=== PATIENT | male | born 1985 | race Caucasian/White ===

== ENCOUNTER 2016-09-03 15:22 | Emergency (ER) | payer OTHER ==
--- NOTE | 2016-09-03 16:04 | EDDOCDS ---
Physician Documentation [facility] Name: Haroon Wharton Age: 31 yrs Sex: Male : 1985 Arrival Date: 09/03/2016 Time: 15:22 Bed TR7 Private MD: Other - Complete Info On Cds Disposition: 09/03/16 15:53 Discharged to Home/Self Care. Impression: Impetigo - MULTIPLE AREAS ON TORSO. - Condition is Stable. - Discharge Instructions: Impetigo, Pediatric. - Prescriptions for Bactroban 2 % Topical Ointment - apply to affected area 1 application by TOPICAL route every 12 hours for 14 days; 30 gram. Clindamycin HCl 300 mg Oral Capsule - take 1 capsule by ORAL route every 6 hours; 40 capsule. - Medication Reconciliation, Local Pharmacy Hours form. - Follow up: Emergency Department; When: As needed; Reason: Worsening of conditions. Follow up: [facility]; When: Call to arrange an appointment; Reason: Wound/Symptom Recheck, Recheck today's complaints, Continuance of care, To establish care. - Problem is an acute exacerbation. - Symptoms are unchanged. Historical: - Allergies: no known allergies; - Home Meds: 1. sulfamethoxazole-trimethoprim 800-160 mg Oral tab 1 tab 2 times per day - PMHx: none; - PSHx: none; - Social history: Smoking status: Patient uses tobacco products, current every day smoker. No barriers to communication noted, The patient speaks fluent Andorran, Speaks appropriately for age. - Family history: Not pertinent. - : The pt / caregiver states he / she is not on anticoagulants. Home medication list is obtained from the patient. - Exposure Risk Screening:: None identified. Vital Signs: 09/03 15:25 BP 142 / 84; Pulse 88; Resp 18 S; Temp 97.3(O); Pulse Ox 100% on R/A; Weight 72.12 kg / gr2 159 lbs (R); Height 5 ft. 6 in. (167.64 cm) (R); Pain 2/10; 15:25 Body Mass Index 25.66 (72.12 kg, 167.64 cm) gr2 MDM: 15:30 Undress patient appropriately for examination ordered. dt4 Signatures: Fariba Lenz RN RN ld5 Rufina Moseley RN RN ttb Sindi Garcia, PA-C PA-C dt4 MTDD
--- NOTE | 2016-09-03 16:04 | EDDOCDS ---
Nurse's Notes [facility] Name: Haroon Wharton Age: 31 yrs Sex: Male : 1985 Arrival Date: 09/03/2016 Time: 15:22 Bed TR7 Private MD: Other - Complete Info On Cds Diagnosis: Impetigo-MULTIPLE AREAS ON TORSO Presentation: 09/03 15:27 Presenting complaint: Patient states: Rash to back, buttocks and arms. Pt reports rash ld5 comes and goes. Has seen specialists for this with no relief. Finished prednisone a week ago. Adult Sepsis Screening: The patient does not have new or worsening altered mentation. Patient's respiratory rate is less than 22. Systolic blood pressure is greater than 100. Patient has a qSOFA score of 0- Negative Sepsis Screen. Suicide/Homicide risk assessment- the patient denies having any suicidal and/or homicidal ideations and does not present with any other emotional, behavioral or mental health complaints. 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 Transition of care: patient was not received from another setting of care. 15:27 Acuity: MER Level 4 ld5 15:27 Method Of Arrival: Walkin/Carried/Asstd ld5 Triage Assessment: 15:30 General: Appears in no apparent distress. Pain: Location: back, buttocks, right arm and ld5 left arm Pain currently is 7 out of 10 on a pain scale. HIV screening NA for this visit Offered previously. Neurological: Level of Consciousness is awake, alert. Respiratory: Airway is patent Respiratory effort is even, unlabored. Derm: Reports weeping to rash. Historical: - Allergies: no known allergies; - Home Meds: 1. sulfamethoxazole-trimethoprim 800-160 mg Oral tab 1 tab 2 times per day - PMHx: none; - PSHx: none; - Social history: Smoking status: Patient uses tobacco products, current every day smoker. No barriers to communication noted, The patient speaks fluent [place] Islander, Speaks appropriately for age. - Family history: Not pertinent. - : The pt / caregiver states he / she is not on anticoagulants. Home medication list is obtained from the patient. - Exposure Risk Screening:: None identified. Screenin:02 Screening information is obtained from the patient. Fall risk: No risks identified. ttb Assistance ADL's: requires no assistance with activities of daily living. Abuse/DV Screen: The patient / caregiver reports he/she is: not in a situation that causes fear, pain or injury. Nutritional screening: No deficits noted. Advance Directives: Currently, there is no health care proxy. home support is adequate. Assessment: 16:02 General: Appears in no apparent distress, well nourished, well groomed, Behavior is ttb appropriate for age, cooperative, pleasant. Neurological: Level of Consciousness is awake, alert. Respiratory: Airway is patent Respiratory effort is even, unlabored. Derm: Skin is normal, Rash noted that is states rash on torso. Vital Signs: 15:25 BP 142 / 84; Pulse 88; Resp 18 S; Temp 97.3(O); Pulse Ox 100% on R/A; Weight 72.12 kg gr2 (R); Height 5 ft. 6 in. (167.64 cm) (R); Pain 2/10; 15:25 Body Mass Index 25.66 (72.12 kg, 167.64 cm) gr2 Vitals: 15:25 Log In Time: September 03, 2016 at 15:25. gr2 ED Course: 15:24 Patient visited by Carito Salter. gr2 15:24 Other - Complete Info On Cds is Private Physician. gr2 15:24 Patient moved to Waiting gr2 15:26 Patient visited by Carito Salter. gr2 15:26 Patient moved to Pre RCE gr2 15:28 Triage Initiated ld5 15:29 Sindi Garcia PA-C is PHCP. dt4 15:29 Mary Ann Shafer MD is Attending Physician. dt4 15:32 Patient visited by Fariba Lenz RN. ld5 15:32 Patient moved to Triage 2 ld5 15:33 Patient visited by Sindi Garcia PA-C. dt4 15:52 [facility] is Referral Physician. dt4 15:57 Patient moved to TR7 ttb 16:02 The patient / caregiver is instructed regarding the plan of care and ED course. Patient ttb has correct armband on for positive identification. 16:02 No IV's were initiated during this patient's visit. No procedures done that require ttb assistance. Order Results: There are currently no results for this order. Outcome: 15:53 Discharge ordered by Provider. dt4 16:02 Discharge Assessment: Patient awake, alert and oriented x 3. No cognitive and/or ttb functional deficits noted. Patient verbalized understanding of disposition instructions. Patient awake and alert. patient administered narcotics - no. The following High Risk Discharge criteria are identified: None. Discharged to home ambulatory. Condition: good Condition: stable Condition: improved. Discharge instructions given to patient, Instructed on discharge instructions, follow up and referral plans. medication usage, Demonstrated understanding of instructions, medications, Pt was receptive of discharge instructions/ teaching. Prescriptions given X 2. No special radiology studies were completed. Property :Personal belongings accompany Pt. 16:03 Patient left the ED. ttb Signatures: Fariba LenzRN RN ld5 Rufina Moseley RN RN ttb Carito Salter gr2 Sindi Garcia PA-C PA-C dt4 Corrections: (The following items were deleted from the chart) 15:32 15:27 Presenting complaint: Patient states: Rash to back, buttocks and arms. Pt reports ld5 rash comes and goes. Has seen specialists for this with no relief ld5 MTDD
--- NOTE | 2016-09-05 17:04 | EDDOCDS ---
Physician Documentation [facility] Name: Haroon Wharton Age: 31 yrs Sex: Male : 1985 Arrival Date: 09/03/2016 Time: 15:22 Bed TR7 Private MD: Other - Complete Info On Cds Disposition: 09/03/16 15:53 Discharged to Home/Self Care. Impression: Impetigo - MULTIPLE AREAS ON TORSO. - Condition is Stable. - Discharge Instructions: Impetigo, Pediatric. - Prescriptions for Bactroban 2 % Topical Ointment - apply to affected area 1 application by TOPICAL route every 12 hours for 14 days; 30 gram. Clindamycin HCl 300 mg Oral Capsule - take 1 capsule by ORAL route every 6 hours; 40 capsule. - Medication Reconciliation, Local Pharmacy Hours form. - Follow up: Emergency Department; When: As needed; Reason: Worsening of conditions. Follow up: [facility]; When: Call to arrange an appointment; Reason: Wound/Symptom Recheck, Recheck today's complaints, Continuance of care, To establish care. - Problem is an acute exacerbation. - Symptoms are unchanged. Historical: - Allergies: no known allergies; - Home Meds: 1. sulfamethoxazole-trimethoprim 800-160 mg Oral tab 1 tab 2 times per day - PMHx: none; - PSHx: none; - Social history: Smoking status: Patient uses tobacco products, current every day smoker. No barriers to communication noted, The patient speaks fluent Gambian, Speaks appropriately for age. - Family history: Not pertinent. - : The pt / caregiver states he / she is not on anticoagulants. Home medication list is obtained from the patient. - Exposure Risk Screening:: None identified. Vital Signs: 09/03 15:25 BP 142 / 84; Pulse 88; Resp 18 S; Temp 97.3(O); Pulse Ox 100% on R/A; Weight 72.12 kg / gr2 159 lbs (R); Height 5 ft. 6 in. (167.64 cm) (R); Pain 2/10; 15:25 Body Mass Index 25.66 (72.12 kg, 167.64 cm) gr2 MDM: 15:30 Undress patient appropriately for examination ordered. dt4 16:10 [facility] Payment Agreement was scanned into [employer] and attached to record. gjb 16:10 Financial registration complete. b 09/04 11:24 T-Sheet-- Draft Copy was scanned into [employer] and attached to record. gb Signatures: Gwendolyn Navarrete, Reg Reg Fariba Mathews,RN RN ld5 Rufina Moseley RN RN ttb Sindi Garcia PA-C PA-C dt4 Nida Madsen The chart was reviewed and I authenticate all verbal orders and agree with the evaluation and treatment provided.Attachments: 09/03 16:10 [facility] [place] [facility] 09/04 11:24 T-Sheet-- Draft Copy gb Chart Complete MTDD
--- NOTE | 2016-09-05 17:04 | EDDOCDS ---
Nurse's Notes [facility] Name: Haroon Wharton Age: 31 yrs Sex: Male : 1985 Arrival Date: 09/03/2016 Time: 15:22 Bed TR7 Private MD: Other - Complete Info On Cds Diagnosis: Impetigo-MULTIPLE AREAS ON TORSO Presentation: 09/03 15:27 Presenting complaint: Patient states: Rash to back, buttocks and arms. Pt reports rash ld5 comes and goes. Has seen specialists for this with no relief. Finished prednisone a week ago. Adult Sepsis Screening: The patient does not have new or worsening altered mentation. Patient's respiratory rate is less than 22. Systolic blood pressure is greater than 100. Patient has a qSOFA score of 0- Negative Sepsis Screen. Suicide/Homicide risk assessment- the patient denies having any suicidal and/or homicidal ideations and does not present with any other emotional, behavioral or mental health complaints. 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 Transition of care: patient was not received from another setting of care. 15:27 Acuity: MER Level 4 ld5 15:27 Method Of Arrival: Walkin/Carried/Asstd ld5 Triage Assessment: 15:30 General: Appears in no apparent distress. Pain: Location: back, buttocks, right arm and ld5 left arm Pain currently is 7 out of 10 on a pain scale. HIV screening NA for this visit Offered previously. Neurological: Level of Consciousness is awake, alert. Respiratory: Airway is patent Respiratory effort is even, unlabored. Derm: Reports weeping to rash. Historical: - Allergies: no known allergies; - Home Meds: 1. sulfamethoxazole-trimethoprim 800-160 mg Oral tab 1 tab 2 times per day - PMHx: none; - PSHx: none; - Social history: Smoking status: Patient uses tobacco products, current every day smoker. No barriers to communication noted, The patient speaks fluent Wolof, Speaks appropriately for age. - Family history: Not pertinent. - : The pt / caregiver states he / she is not on anticoagulants. Home medication list is obtained from the patient. - Exposure Risk Screening:: None identified. Screenin:02 Screening information is obtained from the patient. Fall risk: No risks identified. ttb Assistance ADL's: requires no assistance with activities of daily living. Abuse/DV Screen: The patient / caregiver reports he/she is: not in a situation that causes fear, pain or injury. Nutritional screening: No deficits noted. Advance Directives: Currently, there is no health care proxy. home support is adequate. Assessment: 16:02 General: Appears in no apparent distress, well nourished, well groomed, Behavior is ttb appropriate for age, cooperative, pleasant. Neurological: Level of Consciousness is awake, alert. Respiratory: Airway is patent Respiratory effort is even, unlabored. Derm: Skin is normal, Rash noted that is states rash on torso. Vital Signs: 15:25 BP 142 / 84; Pulse 88; Resp 18 S; Temp 97.3(O); Pulse Ox 100% on R/A; Weight 72.12 kg gr2 (R); Height 5 ft. 6 in. (167.64 cm) (R); Pain 2/10; 15:25 Body Mass Index 25.66 (72.12 kg, 167.64 cm) gr2 Vitals: 15:25 Log In Time: September 03, 2016 at 15:25. gr2 ED Course: 15:24 Patient visited by Carito Salter. gr2 15:24 Other - Complete Info On Cds is Private Physician. gr2 15:24 Patient moved to Waiting gr2 15:26 Patient visited by Carito Salter. gr2 15:26 Patient moved to Pre RCE gr2 15:28 Triage Initiated ld5 15:29 Sindi Garcia PA-C is PHCP. dt4 15:29 Mary Ann Shafer MD is Attending Physician. dt4 15:32 Patient visited by Fariba Lenz RN. ld5 15:32 Patient moved to Triage 2 ld5 15:33 Patient visited by Sindi Garcia PA-C. dt4 15:52 [facility] is Referral Physician. dt4 15:57 Patient moved to TR7 ttb 16:02 The patient / caregiver is instructed regarding the plan of care and ED course. Patient ttb has correct armband on for positive identification. 16:02 No IV's were initiated during this patient's visit. No procedures done that require ttb assistance. 16:10 [facility] [place] Agreement was scanned into [employer] and attached to record. gjb 09/04 11:24 T-Sheet-- Draft Copy was scanned into [employer] and attached to record. gb Order Results: There are currently no results for this order. Outcome: 09/03 15:53 Discharge ordered by Provider. dt4 16:02 Discharge Assessment: Patient awake, alert and oriented x 3. No cognitive and/or ttb functional deficits noted. Patient verbalized understanding of disposition instructions. Patient awake and alert. patient administered narcotics - no. The following High Risk Discharge criteria are identified: None. Discharged to home ambulatory. Condition: good Condition: stable Condition: improved. Discharge instructions given to patient, Instructed on discharge instructions, follow up and referral plans. medication usage, Demonstrated understanding of instructions, medications, Pt was receptive of discharge instructions/ teaching. Prescriptions given X 2. No special radiology studies were completed. Property :Personal belongings accompany Pt. 16:03 Patient left the ED. ttb Signatures: Gwendolyn Navarrete, Reg Reg gb Fariba Lenz RN RN ld5 Rufina Moseley RN RN ttb Carito Salter gr2 Sindi Garcia PA-C PA-C dt4 Nida Madsen Corrections: (The following items were deleted from the chart) 15:32 15:27 Presenting complaint: Patient states: Rash to back, buttocks and arms. Pt reports ld5 rash comes and goes. Has seen specialists for this with no relief ld5 Chart Complete MTDD
--- NOTE | 2016-09-05 17:04 | EDDOCDS ---
Physician Documentation [facility] Name: Haroon Wharton Age: 31 yrs Sex: Male : 1985 Arrival Date: 09/03/2016 Time: 15:22 Bed TR7 Private MD: Other - Complete Info On Cds Disposition: 09/03/16 15:53 Discharged to Home/Self Care. Impression: Impetigo - MULTIPLE AREAS ON TORSO. - Condition is Stable. - Discharge Instructions: Impetigo, Pediatric. - Prescriptions for Bactroban 2 % Topical Ointment - apply to affected area 1 application by TOPICAL route every 12 hours for 14 days; 30 gram. Clindamycin HCl 300 mg Oral Capsule - take 1 capsule by ORAL route every 6 hours; 40 capsule. - Medication Reconciliation, Local Pharmacy Hours form. - Follow up: Emergency Department; When: As needed; Reason: Worsening of conditions. Follow up: [facility]; When: Call to arrange an appointment; Reason: Wound/Symptom Recheck, Recheck today's complaints, Continuance of care, To establish care. - Problem is an acute exacerbation. - Symptoms are unchanged. Historical: - Allergies: no known allergies; - Home Meds: 1. sulfamethoxazole-trimethoprim 800-160 mg Oral tab 1 tab 2 times per day - PMHx: none; - PSHx: none; - Social history: Smoking status: Patient uses tobacco products, current every day smoker. No barriers to communication noted, The patient speaks fluent Moldovan, Speaks appropriately for age. - Family history: Not pertinent. - : The pt / caregiver states he / she is not on anticoagulants. Home medication list is obtained from the patient. - Exposure Risk Screening:: None identified. Vital Signs: 09/03 15:25 BP 142 / 84; Pulse 88; Resp 18 S; Temp 97.3(O); Pulse Ox 100% on R/A; Weight 72.12 kg / gr2 159 lbs (R); Height 5 ft. 6 in. (167.64 cm) (R); Pain 2/10; 15:25 Body Mass Index 25.66 (72.12 kg, 167.64 cm) gr2 MDM: 15:30 Undress patient appropriately for examination ordered. dt4 16:10 [facility] Payment Agreement was scanned into [employer] and attached to record. gjb 16:10 Financial registration complete. b 09/04 11:24 T-Sheet-- Draft Copy was scanned into [employer] and attached to record. gb Signatures: Gwendolyn Navarrete, Reg Reg Fariba Mathews,RN RN ld5 Rufina Moseley RN RN ttb Sindi Garcia PA-C PA-C dt4 Nida Madsen The chart was reviewed and I authenticate all verbal orders and agree with the evaluation and treatment provided.Attachments: 09/03 16:10 [facility] Payment Agreement [facility] 09/04 11:24 T-Sheet-- Draft Copy gb Chart Complete MTDD
== END 2016-09-03 16:03 | disposition home or self-care (01) ==
LOC: M ED 15:22
DX: L01.01 Non-bullous impetigo (principal); Z72.0 Tobacco use

== ENCOUNTER 2016-09-09 14:57 | Emergency (ER) | payer OTHER ==
[2016-09-09] MEDS ORDERED: methylPREDNISolone INJ 125 MG/2 ML VIAL (J2930) As Ordered ONE (15:39)
--- NOTE | 2016-09-09 16:08 | EDDOCDS ---
Nurse's Notes [facility] Name: Haroon Wharton Age: 31 yrs Sex: Male : 1985 Arrival Date: 09/09/2016 Time: 14:57 Bed TR2 Private MD: Other - Complete Info On Cds Diagnosis: Dermatitis, unspecified Presentation: 09/09 15:11 Presenting complaint: Patient states: has a skin rash that he has had for the past 6 [facility] years, weeping sores on back arms and legs. Adult Sepsis Screening: The patient does not have new or worsening altered mentation. Patient's respiratory rate is less than 22. Systolic blood pressure is greater than 100. Patient has a qSOFA score of 0- Negative Sepsis Screen. Suicide/Homicide risk assessment- the patient denies having any suicidal and/or homicidal ideations and does not present with any other emotional, behavioral or mental health complaints. 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 Transition of care: Patient was received from [facility]. 15:11 Acuity: MER Level 3 [facility] 15:11 Method Of Arrival: Walkin/Carried/Asstd [facility] Triage Assessment: 15:18 General: Appears well nourished, well groomed, Behavior is appropriate for age, kpj pleasant. Pain: Location: back arms and legs Pain currently is 9 out of 10 on a pain scale. Pt Declines HIV testing. Neurological: Level of Consciousness is awake, alert, Oriented to person, place, time. Respiratory: Airway is patent Respiratory effort is even, unlabored, Respiratory pattern is regular, symmetrical. Derm: Skin is pink, warm & dry. Reports weeping sores on back arms and legs. Historical: - Allergies: No known drug Allergies; - Home Meds: 1. clindamycin HCl 300 mg Oral cap 1 cap every 6 hours (Last dose: 09/09/2016 11:30) 2. mupirocin 2 % topical oint 3 times per day ran out - PMHx: chronic skin rash; - PSHx: Lasik Surgery; - Social history: Smoking status: Patient uses tobacco products, heavy tobacco smoker. No barriers to communication noted, The patient speaks fluent Bruneian. - Family history: Not pertinent. - : The pt / caregiver states he / she is not on anticoagulants. Home medication list is obtained from the patient. - Exposure Risk Screening:: None identified. Screenin:46 Screening information is obtained from the patient. Fall risk: No risks identified. kpj Assistance ADL's: requires no assistance with activities of daily living. Abuse/DV Screen: The patient / caregiver reports he/she is: not in a situation that causes fear, pain or injury. Nutritional screening: No deficits noted. Advance Directives: Currently, there is no health care proxy. There is no active DNR order. There is no living will. There is no Power of [place]. Advance directive information has not previously been placed in an [facility] medical record. Further advance directive information is declined. home support is adequate. Assessment: 15:46 General: Appears uncomfortable, well nourished, well groomed, Behavior is appropriate [facility] for age, pleasant. Pain: Location: back ,arms and legs Pain currently is 7 out of 10 on a pain scale. Neurological: Level of Consciousness is awake, alert. Respiratory: Airway is patent Respiratory effort is even, unlabored, Respiratory pattern is regular, symmetrical. Derm: Skin is pink, warm & dry. circular weeping lesions noted on back arms legs and buttocks. 16:05 Reassessment: Patient appears in no apparent distress at this time. no reaction from j solumedrol imjection. Vital Signs: 14:59 BP 162 / 92; Pulse 115; Resp 18 S; Temp 98.2(O); Pulse Ox 97% on R/A; Weight 68.04 kg gr2 (R); Height 5 ft. 6 in. (167.64 cm) (R); Pain 4/10; 16:01 BP 130 / 87 RA Standing (auto/lg); Pulse 123; Resp 16; Temp 99.1(O); Pulse Ox 96% on rs6 R/A; Pain 8/10; 14:59 Body Mass Index 24.21 (68.04 kg, 167.64 cm) gr2 Vitals: 14:59 Log In Time: September 09, 2016 at 14:59. gr2 ED Course: 14:59 Patient visited by Carito Salter. gr2 14:59 Other - Complete Info On Cds is Private Physician. gr2 14:59 Patient moved to Waiting gr2 15:00 Patient visited by Carito Salter. gr2 15:00 Patient moved to Pre RCE gr2 15:13 Triage Initiated kpj 15:18 Patient moved to I4 / M4 srm 15:21 Patient moved to Triage 1 jjr 15:22 [facility] ar2 15:22 Noel Mares MD is Attending Physician. ar2 15:23 Patient visited by Don Chopra PA-C. ar2 15:36 [facility] ar2 15:46 Resting quietly. Awaiting 20 minute post injection period.. kpj 15:46 Patient moved to TR2 kp 15:46 The patient / caregiver is instructed regarding the plan of care and ED course. Patient [facility] has correct armband on for positive identification. 15:46 No IV's were initiated during this patient's visit. No procedures done that require kpj assistance. 16:02 Patient visited by Cony Kulkarni PCA. rs6 Administered Medications: 15:45 Drug: methylPREDNISolone Sodium Succinate 125 mg [methylprednisolone sodium succ 125 mg kpj solution for injection (125 mg)] Route: IM; Site: right gluteus; Order Results: There are currently no results for this order. Outcome: 15:37 Discharge ordered by Provider. ar2 16:06 Discharge Assessment: Patient awake, alert and oriented x 3. No cognitive and/or kpj functional deficits noted. Patient verbalized understanding of disposition instructions. patient administered narcotics - no. The following High Risk Discharge criteria are identified: None. Discharged to home ambulatory. Condition: stable. Discharge instructions given to patient, Instructed on discharge instructions, follow up and referral plans. medication usage, no driving heavy equipment, wound care, no drinking with medication, Demonstrated understanding of instructions, medications, Pt was receptive of discharge instructions/ teaching. Prescriptions given X 2. No special radiology studies were completed. Property sent home with patient. 16:07 Patient left the ED. [facility] Signatures: Jyoti Wright RN RN kpj Michelson, Staci, RN RN srm Raymond, Jessica, RN RN jjr Robertshaw, Aaron, PA-C PA-C ar Carito Salter [facility] Cony Kulkarni PCA [employer] rs6 MTDD
--- NOTE | 2016-09-09 16:08 | EDDOCDS ---
Physician Documentation [facility] Name: Haroon Wharton Age: 31 yrs Sex: Male : 1985 Arrival Date: 09/09/2016 Time: 14:57 Bed TR2 Private MD: Other - Complete Info On Cds Disposition: 09/09/16 15:37 Discharged to Home/Self Care. Impression: Dermatitis, unspecified. - Condition is Stable. - Prescriptions for Hydroxyzine HCl 50 mg Oral Tablet - take 1 tablet by ORAL route every 8 hours As needed; 20 tablet. Prednisone 20 mg Oral Tablet - take 1 tablet by ORAL route as directed Day 1-3: 3 po, day 4-7: 2 po, day 8-10: 1 po; 20 tablet. - Medication Reconciliation, Local Pharmacy Hours form. - Follow up: Kisha Zamarripa [facility]; When: Call to arrange an appointment; Reason: Recheck today's complaints, obtain dermatology referral. Follow up: Emergency Department; When: As needed; Reason: fevers, signs of infection, trouble breathing. - Problem is an acute exacerbation. - Symptoms are unchanged. - Notes: your rash is consistent with some type of dermatitis. take medications as directed. no alcohol use, driving, or use of heavy machinery or weaponry while taking hydroxyzine Historical: - Allergies: No known drug Allergies; - Home Meds: 1. clindamycin HCl 300 mg Oral cap 1 cap every 6 hours (Last dose: 09/09/2016 11:30) 2. mupirocin 2 % topical oint 3 times per day ran out - PMHx: chronic skin rash; - PSHx: Lasik Surgery; - Social history: Smoking status: Patient uses tobacco products, heavy tobacco smoker. No barriers to communication noted, The patient speaks fluent Divehi. - Family history: Not pertinent. - : The pt / caregiver states he / she is not on anticoagulants. Home medication list is obtained from the patient. - Exposure Risk Screening:: None identified. Vital Signs: 09/09 14:59 BP 162 / 92; Pulse 115; Resp 18 S; Temp 98.2(O); Pulse Ox 97% on R/A; Weight 68.04 kg / gr2 150 lbs (R); Height 5 ft. 6 in. (167.64 cm) (R); Pain 4/10; 16:01 BP 130 / 87 RA Standing (auto/lg); Pulse 123; Resp 16; Temp 99.1(O); Pulse Ox 96% on rs6 R/A; Pain 810; 14:59 Body Mass Index 24.21 (68.04 kg, 167.64 cm) gr2 MDM: 15:36 methylPREDNISolone Sodium Succinate 125 mg IM once ordered. ar2 15:41 Financial registration complete. [email or web address] Administered Medications: 15:45 Drug: methylPREDNISolone Sodium Succinate 125 mg [methylprednisolone sodium succ 125 mg [facility] solution for injection (125 mg)] Route: IM; Site: right gluteus; Signatures: Jyoti Wright, RN RN kpj Don Chopra PA-C PA-C ar2 Eliaan Frederick, Reg Reg ks16 MTDD
--- NOTE | 2016-09-11 17:08 | EDDOCDS ---
Nurse's Notes [facility] Name: Haroon Wharton Age: 31 yrs Sex: Male : 1985 Arrival Date: 09/09/2016 Time: 14:57 Bed TR2 Private MD: Other - Complete Info On Cds Diagnosis: Dermatitis, unspecified Presentation: 09/09 15:11 Presenting complaint: Patient states: has a skin rash that he has had for the past 6 [facility] years, weeping sores on back arms and legs. Adult Sepsis Screening: The patient does not have new or worsening altered mentation. Patient's respiratory rate is less than 22. Systolic blood pressure is greater than 100. Patient has a qSOFA score of 0- Negative Sepsis Screen. Suicide/Homicide risk assessment- the patient denies having any suicidal and/or homicidal ideations and does not present with any other emotional, behavioral or mental health complaints. 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 Transition of care: Patient was received from [facility]. 15:11 Acuity: MER Level 3 [facility] 15:11 Method Of Arrival: Walkin/Carried/Asstd [facility] Triage Assessment: 15:18 General: Appears well nourished, well groomed, Behavior is appropriate for age, kpj pleasant. Pain: Location: back arms and legs Pain currently is 9 out of 10 on a pain scale. Pt Declines HIV testing. Neurological: Level of Consciousness is awake, alert, Oriented to person, place, time. Respiratory: Airway is patent Respiratory effort is even, unlabored, Respiratory pattern is regular, symmetrical. Derm: Skin is pink, warm & dry. Reports weeping sores on back arms and legs. Historical: - Allergies: No known drug Allergies; - Home Meds: 1. clindamycin HCl 300 mg Oral cap 1 cap every 6 hours (Last dose: 09/09/2016 11:30) 2. mupirocin 2 % topical oint 3 times per day ran out - PMHx: chronic skin rash; - PSHx: Lasik Surgery; - Social history: Smoking status: Patient uses tobacco products, heavy tobacco smoker. No barriers to communication noted, The patient speaks fluent Nigerian. - Family history: Not pertinent. - : The pt / caregiver states he / she is not on anticoagulants. Home medication list is obtained from the patient. - Exposure Risk Screening:: None identified. Screenin:46 Screening information is obtained from the patient. Fall risk: No risks identified. kpj Assistance ADL's: requires no assistance with activities of daily living. Abuse/DV Screen: The patient / caregiver reports he/she is: not in a situation that causes fear, pain or injury. Nutritional screening: No deficits noted. Advance Directives: Currently, there is no health care proxy. There is no active DNR order. There is no living will. There is no Power of [employer]. Advance directive information has not previously been placed in an [facility] medical record. Further advance directive information is declined. home support is adequate. Assessment: 15:46 General: Appears uncomfortable, well nourished, well groomed, Behavior is appropriate [facility] for age, pleasant. Pain: Location: back ,arms and legs Pain currently is 7 out of 10 on a pain scale. Neurological: Level of Consciousness is awake, alert. Respiratory: Airway is patent Respiratory effort is even, unlabored, Respiratory pattern is regular, symmetrical. Derm: Skin is pink, warm & dry. circular weeping lesions noted on back arms legs and buttocks. 16:05 Reassessment: Patient appears in no apparent distress at this time. no reaction from j solumedrol imjection. Vital Signs: 14:59 BP 162 / 92; Pulse 115; Resp 18 S; Temp 98.2(O); Pulse Ox 97% on R/A; Weight 68.04 kg gr2 (R); Height 5 ft. 6 in. (167.64 cm) (R); Pain 4/10; 16:01 BP 130 / 87 RA Standing (auto/lg); Pulse 123; Resp 16; Temp 99.1(O); Pulse Ox 96% on rs6 R/A; Pain 8/10; 14:59 Body Mass Index 24.21 (68.04 kg, 167.64 cm) gr2 Vitals: 14:59 Log In Time: September 09, 2016 at 14:59. gr2 ED Course: 14:59 Patient visited by Carito Salter. gr2 14:59 Other - Complete Info On Cds is Private Physician. gr2 14:59 Patient moved to Waiting gr2 15:00 Patient visited by Carito Salter. gr2 15:00 Patient moved to Pre RCE gr2 15:13 Triage Initiated kpj 15:18 Patient moved to I4 / M4 srm 15:21 Patient moved to Triage 1 jjr 15:22 [facility] ar2 15:22 Noel Mares MD is Attending Physician. ar2 15:23 Patient visited by Don Chopra PA-C. ar2 15:36 [place] is Referral Physician. ar2 15:46 Resting quietly. Awaiting 20 minute post injection period.. kpj 15:46 Patient moved to TR2 kpj 15:46 The patient / caregiver is instructed regarding the plan of care and ED course. Patient [facility] has correct armband on for positive identification. 15:46 No IV's were initiated during this patient's visit. No procedures done that require kpj assistance. 16:02 Patient visited by Cony Kulkarni PCA. rs6 16:09 [facility] Payment Agreement was scanned into [employer] and attached to record. ks16 21:54 T-Sheet-- Draft Copy was scanned into [employer] and attached to record. klr Administered Medications: 15:45 Drug: methylPREDNISolone Sodium Succinate 125 mg [methylprednisolone sodium succ 125 mg kpj solution for injection (125 mg)] Route: IM; Site: right gluteus; Order Results: There are currently no results for this order. Outcome: 15:37 Discharge ordered by Provider. ar2 16:06 Discharge Assessment: Patient awake, alert and oriented x 3. No cognitive and/or kpj functional deficits noted. Patient verbalized understanding of disposition instructions. patient administered narcotics - no. The following High Risk Discharge criteria are identified: None. Discharged to home ambulatory. Condition: stable. Discharge instructions given to patient, Instructed on discharge instructions, follow up and referral plans. medication usage, no driving heavy equipment, wound care, no drinking with medication, Demonstrated understanding of instructions, medications, Pt was receptive of discharge instructions/ teaching. Prescriptions given X 2. No special radiology studies were completed. Property sent home with patient. 16:07 Patient left the ED. [facility] Signatures: Jyoti Wright RN RN kpj Michelson, Staci, RN RN srm Raymond, Jessica, RN RN jjr Robertshaw, Aaron, PA-C PA-C ar Carito Salter gr2 Cony Kulkarni PCA PCA rs6 Eliana Frederick, Reg Reg ks16 Sheeba Ivan Chart Complete MTDD
--- NOTE | 2016-09-11 17:08 | EDDOCDS ---
Physician Documentation [facility] Name: Haroon Wharton Age: 31 yrs Sex: Male : 1985 Arrival Date: 09/09/2016 Time: 14:57 Bed TR2 Private MD: Other - Complete Info On Cds Disposition: 09/09/16 15:37 Discharged to Home/Self Care. Impression: Dermatitis, unspecified. - Condition is Stable. - Prescriptions for Hydroxyzine HCl 50 mg Oral Tablet - take 1 tablet by ORAL route every 8 hours As needed; 20 tablet. Prednisone 20 mg Oral Tablet - take 1 tablet by ORAL route as directed Day 1-3: 3 po, day 4-7: 2 po, day 8-10: 1 po; 20 tablet. - Medication Reconciliation, Local Pharmacy Hours form. - Follow up: Kisha Zamarripa [facility]; When: Call to arrange an appointment; Reason: Recheck today's complaints, obtain dermatology referral. Follow up: Emergency Department; When: As needed; Reason: fevers, signs of infection, trouble breathing. - Problem is an acute exacerbation. - Symptoms are unchanged. - Notes: your rash is consistent with some type of dermatitis. take medications as directed. no alcohol use, driving, or use of heavy machinery or weaponry while taking hydroxyzine Historical: - Allergies: No known drug Allergies; - Home Meds: 1. clindamycin HCl 300 mg Oral cap 1 cap every 6 hours (Last dose: 09/09/2016 11:30) 2. mupirocin 2 % topical oint 3 times per day ran out - PMHx: chronic skin rash; - PSHx: Lasik Surgery; - Social history: Smoking status: Patient uses tobacco products, heavy tobacco smoker. No barriers to communication noted, The patient speaks fluent Nepali. - Family history: Not pertinent. - : The pt / caregiver states he / she is not on anticoagulants. Home medication list is obtained from the patient. - Exposure Risk Screening:: None identified. Vital Signs: 09/09 14:59 BP 162 / 92; Pulse 115; Resp 18 S; Temp 98.2(O); Pulse Ox 97% on R/A; Weight 68.04 kg / gr2 150 lbs (R); Height 5 ft. 6 in. (167.64 cm) (R); Pain 4/10; 16:01 BP 130 / 87 RA Standing (auto/lg); Pulse 123; Resp 16; Temp 99.1(O); Pulse Ox 96% on rs6 R/A; Pain 8/10; 14:59 Body Mass Index 24.21 (68.04 kg, 167.64 cm) gr2 MDM: 15:36 methylPREDNISolone Sodium Succinate 125 mg IM once ordered. ar2 15:41 Financial registration complete. ks16 16:09 [facility] Payment Agreement was scanned into [employer] and attached to record. ks16 21:54 T-Sheet-- Draft Copy was scanned into [employer] and attached to record. klr Administered Medications: 15:45 Drug: methylPREDNISolone Sodium Succinate 125 mg [methylprednisolone sodium succ 125 mg [facility] solution for injection (125 mg)] Route: IM; Site: right gluteus; Signatures: Jyoti Wright RN RN kpDon Dockery PA-C PA-C ar2 Eliana Frederick, Reg Reg ks16 Sheeba Ivan klr The chart was reviewed and I authenticate all verbal orders and agree with the evaluation and treatment provided.Attachments: 16:09 [facility] Payment Agreement [email or web address] 21:54 T-Sheet-- Draft Copy klr Chart Complete MTDD
--- NOTE | 2016-09-11 17:08 | EDDOCDS ---
Physician Documentation [facility] Name: Haroon Wharton Age: 31 yrs Sex: Male : 1985 Arrival Date: 09/09/2016 Time: 14:57 Bed TR2 Private MD: Other - Complete Info On Cds Disposition: 09/09/16 15:37 Discharged to Home/Self Care. Impression: Dermatitis, unspecified. - Condition is Stable. - Prescriptions for Hydroxyzine HCl 50 mg Oral Tablet - take 1 tablet by ORAL route every 8 hours As needed; 20 tablet. Prednisone 20 mg Oral Tablet - take 1 tablet by ORAL route as directed Day 1-3: 3 po, day 4-7: 2 po, day 8-10: 1 po; 20 tablet. - Medication Reconciliation, Local Pharmacy Hours form. - Follow up: Kisha Zamarripa [facility]; When: Call to arrange an appointment; Reason: Recheck today's complaints, obtain dermatology referral. Follow up: Emergency Department; When: As needed; Reason: fevers, signs of infection, trouble breathing. - Problem is an acute exacerbation. - Symptoms are unchanged. - Notes: your rash is consistent with some type of dermatitis. take medications as directed. no alcohol use, driving, or use of heavy machinery or weaponry while taking hydroxyzine Historical: - Allergies: No known drug Allergies; - Home Meds: 1. clindamycin HCl 300 mg Oral cap 1 cap every 6 hours (Last dose: 09/09/2016 11:30) 2. mupirocin 2 % topical oint 3 times per day ran out - PMHx: chronic skin rash; - PSHx: Lasik Surgery; - Social history: Smoking status: Patient uses tobacco products, heavy tobacco smoker. No barriers to communication noted, The patient speaks fluent Croatian. - Family history: Not pertinent. - : The pt / caregiver states he / she is not on anticoagulants. Home medication list is obtained from the patient. - Exposure Risk Screening:: None identified. Vital Signs: 09/09 14:59 BP 162 / 92; Pulse 115; Resp 18 S; Temp 98.2(O); Pulse Ox 97% on R/A; Weight 68.04 kg / gr2 150 lbs (R); Height 5 ft. 6 in. (167.64 cm) (R); Pain 4/10; 16:01 BP 130 / 87 RA Standing (auto/lg); Pulse 123; Resp 16; Temp 99.1(O); Pulse Ox 96% on rs6 R/A; Pain 8/10; 14:59 Body Mass Index 24.21 (68.04 kg, 167.64 cm) gr2 MDM: 15:36 methylPREDNISolone Sodium Succinate 125 mg IM once ordered. ar2 15:41 Financial registration complete. ks16 16:09 [facility] Payment Agreement was scanned into [employer] and attached to record. ks16 21:54 T-Sheet-- Draft Copy was scanned into [employer] and attached to record. klr Administered Medications: 15:45 Drug: methylPREDNISolone Sodium Succinate 125 mg [methylprednisolone sodium succ 125 mg [facility] solution for injection (125 mg)] Route: IM; Site: right gluteus; Signatures: Jyoti Wright RN RN kpDon Dockery PA-C PA-C ar2 Eliana Frederick, Reg Reg ks16 Sheeba Ivan klr The chart was reviewed and I authenticate all verbal orders and agree with the evaluation and treatment provided.Attachments: 16:09 [facility] Payment Agreement [email or web address] 21:54 T-Sheet-- Draft Copy klr Chart Complete MTDD
== END 2016-09-09 16:07 | disposition home or self-care (01) ==
LOC: M ED 14:57
DX: L30.9 Dermatitis, unspecified (principal); F17.200 Nicotine dependence, unspecified, uncomplicated
CPT/HCPCS: 96372; 99283; J2930